=== PATIENT | male | born 1985 ===

== ENCOUNTER 2016-12-16 21:55 | Emergency (ER) | payer OTHER ==
[2016-12-16 22:09] VITALS: BMI 34.2
[2016-12-16 22:12] VITALS: TEMP 98.6
--- NOTE | 2016-12-16 22:21 | ED PDOC ---
Arrival/HPI - General Chief Complaint: Trauma Time Seen by Provider: 12/16/16 22:04 Historian: Patient - History of Present Illness Narrative History of Present Illness (Text): 12/16/16 22:21 This 31 yo male presents to this ED c/o scalp laceration X [employer]. Patient stated while wrestling a monitor fell over his head. Patient denies LOC, diplopia, WATKINS, dysarthria, dizziness, or abnormal gait. Last tetanus is [facility] Time/Duration: Prior to Arrival Context: Other (gym) Past Medical History - Provider Review Nursing Documentation Reviewed: Yes - Infectious Disease Hx of Infectious Diseases: None - Pulmonary Hx Sleep Apnea: Yes - Psychiatric Hx Substance Use: No - Anesthesia Hx Anesthesia: No Hx Anesthesia Reactions: No Hx Malignant Hyperthermia: No Family/Social History - Physician Review Nursing Documentation Reviewed: Yes Family/Social History: No Known Family HX Smoking Status: Current Some Days Smoker Hx Alcohol Use: Yes Frequency of alcohol use: Socially Hx Substance Use: No Allergies/Home Meds Allergies/Adverse Reactions: Allergies No Known Allergies Allergy (Verified 10/26/15 15:17) Review of Systems - Review of Systems Constitutional: Normal. absent: Fatigue, Weight Change, Fevers Eyes: Normal ENT: Normal Respiratory: Normal Cardiovascular: Normal Gastrointestinal: Normal Genitourinary Male: Normal Musculoskeletal: Normal Skin: Laceration (see HPI) Neurological: Normal Endocrine: Normal Hemo/Lymphatic: Normal Psychiatric: Normal Physical Exam Vital Signs Temp Pulse Resp BP Pulse Ox 12/16/16 23:56 87 16 126/81 100 12/16/16 22:11 98.6 F 91 H 19 127/85 97 Temperature: Afebrile Blood Pressure: Normal Pulse: Regular Respiratory Rate: Normal Appearance: Positive for: Well-Appearing, Non-Toxic, Comfortable Pain Distress: None Mental Status: Positive for: Alert and Oriented X 3 - Systems Exam Head: Present: Atraumatic, Normocephalic, Laceration (scalp laceration approx. 2.7 cm. located mid frontal scalp.), Other (no raccoon sign. no rangel sign.) Pupils: Present: PERRL, Other (no hyphema) Extroacular Muscles: Present: EOMI. No: Entrapment Conjunctiva: Present: Normal Ears: Present: Normal, NORMAL TM, Normal Canal, Other (No hemotympanum). No: Erythema, TM Bulging, Fluid, TM Perf Mouth: Present: Moist Mucous Membranes Pharnyx: Present: Normal. No: ERYTHEMA, EXUDATE, TONSILS ENLARGED Nose (External): Present: Atraumatic Nose (Internal): Present: Normal Inspection. No: Septal Deviation, Epistaxis Neck: Present: Normal Range of Motion, Trachea Midline. No: Meningeal Signs, MIDLINE TENDERNESS, Paraspinal Tenderness Respiratory/Chest: Present: Clear to Auscultation, Good Air Exchange. No: Respiratory Distress, Accessory Muscle Use Cardiovascular: Present: Regular Rate and Rhythm, Normal S1, S2. No: Murmurs Abdomen: Present: Normal Bowel Sounds. No: Tenderness, Distention, Peritoneal Signs Back: Present: Normal Inspection Upper Extremity: Present: Normal Inspection. No: Cyanosis, Edema Lower Extremity: Present: Normal Inspection. No: Edema Neurological: Present: GCS=15, CN II-XII Intact, Speech Normal, Motor Func Grossly Intact, Normal Sensory Function, Normal Cerebellar Funct, Gait Normal, Memory Normal, Other (No neuro focal deficits) Skin: Present: Warm, Dry, Normal Color. No: Rashes Psychiatric: Present: Alert, Oriented x 3, Normal Insight, Normal Concentration Medical Decision Making ED Course and Treatment: 12/16/16 23:32 Patient came c/o scalp laceration during wresting match. Patient stated head was hit by a monitor. Patient denies LOC, n/v, dizziness, WATKINS, or abnormal gait. Physical exam was unremarkable, except for scalp laceration. Laceration was repaired. Patient remained asymptomatic during the course of ED visit. Patient understood plan to f/u p,d in 1-2 days, and to avoid head injury, gym, or sport till clear by hi doctor. Neil needs to be removed in 7 days. Patient prefers not to have CT scan of head since he has not symptoms at this time, and physical exam was unremarkable. Re-evaluation Time: 23:25 Reassessment Condition: Re-examined, Improved - Medication Orders Current Medication Orders: Discontinued Medications Tetanus/Reduced Diphtheria/Acell Pertussis (Boostrix Vaccine Inj) 0.5 ml IM .ONCE ONE Stop: 12/16/16 23:15 Last Admin: 12/16/16 23:53 Dose: 0.5 ML MAR Immunization Data Document 12/16/16 23:53 EQ (Rec: 12/16/16 23:54 EQ [id number]) Immunization Data Vaccine Lot Number [id number] Vaccine Expiration Date 11/17/18 Site Given Left Arm Route Intramuscular Immunization Units ml - Procedure PROCEDURE NOTE (Text): 12/16/16 23:32 PROCEDURE: LACERATION REPAIR Performed by the emergency provider Location: scalp Length: 2.7 cm Description: clean wound edges, no foreign bodies Distal CMS: Normal. No deficits. Neurovascularly intact. Anesthesia: none Preparation: The wound was cleaned with NS and [place]. The area was prepped and draped in the usual sterile fashion. Exploration: The wound was explored and no foreign bodies were found. Procedure: The wound was closed with Neil. There was good approximation. In total, 2 neil were used. Post-Procedure: Good closure and hemostasis. The patient tolerated the procedure well and there were no complications. CSM remains intact. Post procedure dressing applied. Disposition/Present on Arrival - Present on Arrival Any Indicators Present on Arrival: No History of DVT/PE: No History of Uncontrolled Diabetes: No Urinary Catheter: No History of Decub. Ulcer: No History Surgical Site Infection Following: None - Disposition Have Diagnosis and Disposition been Completed?: Yes Diagnosis: Scalp laceration, Closed head injury Disposition: HOME/ ROUTINE Disposition Time: 23:34 Patient Plan: Discharge Condition: IMPROVED Discharge Instructions (ExitCare): Head Injury (ED), Laceration (ED) Additional Instructions: Call private doctor for revaluation in 2-3 days. Wound needs to be clean and dry for 2 days, then clean wound with soap and water daily. [place] needs to be removed in 7 days. Return to emergency if wound becomes infected, swelling , discharge, redness, or if you can not see your doctor. Prevent another head injury within next 2 weeks. No sport or gym till clear by your doctor. Take OTC Tylenol for pain as needed Referrals: Lizandro March MD [Primary Care Provider] - Follow up with primary
[2016-12-16] MEDS ORDERED: TDAP Vaccine 0.5 mL Syr IM ONE (23:14)
[2016-12-16 23:57] VITALS: BP 126/81; PULSE 87; RESP 16; O2SAT 100
== END 2016-12-16 23:56 | disposition home or self-care (01) ==
LOC: ED 21:55
DX: S01.01XA Laceration without foreign body of scalp, initial encounter (principal); W22.8XXA Striking against or struck by other objects, initial encounter; Y93.72 Activity, wrestling; Y92.39 Other specified sports and athletic area as the place of occurrence of the external cause; Z23 Encounter for immunization